=== PATIENT | female | born 1950 | race Caucasian/White ===

== ENCOUNTER 2016-09-29 16:40 | Emergency (ER) | payer MEDICARE, OTHER ==
--- NOTE | 2016-11-04 18:52 | ER ---
ADMIT: 09/29/2016 RM/LOC: ER [facility] MR#: [id number] [id number] [place] [address] [place] [address] Emergency Room Report SEX: F AGE: 66 : 1950 DATE: 09/29/2016 ADDENDUM: This patient comes into the ER because she has noticed blood in her urine that started today. She also feels like a burning-type pain in her bladder. On physical exam, she is tender right above the pubic symphysis and mildly tender in her lower spine. Urinalysis showed 200 wbc's. Her CBC and BMP were normal. With palpation of her back, she did seem to have pain on her spine and also more pain on her right flank area, and I was concerned about obstructing stone or a pyelonephritis. CT scan was negative. She was given IV of normal saline with Levaquin 750. Upon looking at the CT scan, the radiologist thought that she had a colitis. I did consult with Dr. Whiting concerning treatment of this patient. She was started on Cipro and Flagyl, and she is to follow up with her primary. I also wrote a prescription for [place] 5 mg 1 to 2 tabs p.o. q.4 to 6 hours p.r.n. pain. Please see my T- sheet. DAVID Garcia / Woody Whiting MD / colel JOB #: [id number] CC: Woody Whiting MD, Attending Physician Abelino Weber MD, Family Physician
[2017-04-09] MEDS ORDERED: BACLOFEN10 MG PO (14:59)
[2017-04-09] MEDS ORDERED: PROZAC DPS20 MG PO (15:00)
[2017-04-09] MEDS ORDERED: AVONEX PEN30 MCG/0.5 SQ (15:00)
[2017-04-09] MEDS ORDERED: ASA CHILDREN'S81 MG PO (15:00)
[2017-04-09] MEDS ORDERED: KEPPRA DPS500 MG PO (15:01)
[2017-04-09] MEDS ORDERED: MULTIPLE VITAM1 EACH PO (15:01)
[2017-04-09] MEDS ORDERED: TYLENOL DPS325 MG PO (15:01)
[2017-04-09] MEDS ORDERED: VITAMIN B1100 MG PO (15:01)
[2017-04-09] MEDS ORDERED: OYSTER SHELL C1 EAC2 PO (15:02)
== END 2016-09-29 22:45 | disposition home or self-care (01) ==
LOC: ER 16:40
DX: N39.0 Urinary tract infection, site not specified (principal); K52.9 Noninfective gastroenteritis and colitis, unspecified; Z79.899 Other long term (current) drug therapy